=== PATIENT | female | born 1940 | race Caucasian/White ===

== ENCOUNTER 2021-06-10 22:31 | Inpatient (IN) | payer MEDICARE, OTHER ==
[2021-06-10 23:07] LABS: #Basophils 0.1 thou/uL (0.0-0.2); #Lymphocytes 1.1 thou/uL (1.20-3.40); #Neutrophils 4.9 thou/uL (1.40-6.50); %Basophils 0.8 % (0.0-1.0); %Eosinophils 0.5 % (0.0-10.0); %Monocytes 13.4 % (0.0-10.0); %Neutrophils 69.2 % (42.0-75.0); Hemoglobin 8.5 g/dL (12.0-16.0); Mean Corpuscular Hemoglobin 30.9 pg (27.0-31.0); Mean Corpuscular Volume 96.4 fL (78.0-98.0); Mean Platelet Volume 7.2 fL (7.4-10.4); Platelet Count 366 thou/uL (130-400); RBC Distribution Width 15.1 % (11.5-14.5); Red Blood Cell (RBC) Count 2.75 mill/uL (4.20-5.40)
[2021-06-10] MEDS ORDERED: Acetaminophen 500 MG TAB ONE (23:15)
[2021-06-10] MEDS ORDERED: Ibuprofen 200 MG TAB ONE (23:15)
[2021-06-10 23:29] LABS: ALT (SGPT) 9 U/L (8-55); AST (SGOT) 18 U/L (5-34); Albumin 2.6 g/dL (3.4-4.8); Alkaline Phosphatase 81 U/L (40-110); Anion Gap 13 mmol/L (10-20); BUN (Urea Nitrogen) 35 mg/dL (9.8-20.1); Bilirubin, Total 0.2 mg/dL (0.2-1.2); Calc. Creatinine Clearance 0 mL/min (70-130); Calcium 8.2 mg/dL (7.8-10.44); Carbon Dioxide 24 mmol/L (23-31); Chloride 107 mmol/L (98-107); Globulin 3.3 g/dL (2.4-3.5); Glucose 98 mg/dL (83-110); Potassium 4.5 mmol/L (3.5-5.1); Protein, Total 5.9 g/dL (5.8-8.1); Sodium 139 mmol/L (136-145)
[2021-06-11] MEDS ORDERED: cefTRIAXone\\ROCEPHIN 1 GM VIAL ONE (00:31)
[2021-06-11] MEDS ORDERED: Vancomycin 1 GM/200 ML BAG ONE (00:31)
[2021-06-11 09:25] LABS: Clarity Turbid (Clear); Specific Gravity, Urine 1.014 (1.002-1.036)
[2021-06-11 09:26] LABS: Bacteria/HPF 4+ HPF (None Seen); Bilirubin Negative (Negative); Blood, Urine Negative (Negative); Glucose, Urine (Dipstick) Negative (Negative); Ketone, Urine Negative (Negative); Leukocyte 75 Leu/uL (Negative); Nitrite 2+ (Negative); Protein, Urine (Dipstick) Negative (Neg-Trace); RBC/HPF 0-3 HPF (0-3); Squamous Epithelial 0-3 HPF (0-3); Urobilinogen Normal mg/dL (Less than 2); pH, Urine 5.5 (5.0-9.0)
[2021-06-11 10:24] LABS: SARS-CoV-2 NAA Rapid Test DETECTED (NotDetected)
[2021-06-11] MEDS ORDERED: Ondansetron ODT 4 MG TAB PO PRN (14:37)
[2021-06-11] MEDS ORDERED: Senokot S 8.6-50 MG TAB PO PRN (14:37)
[2021-06-11] MEDS ORDERED: Acetaminophen 325 MG TAB PO PRN (14:37)
[2021-06-11] MEDS: HYDROcodone/Acetaminophen 5/325 mg Tablet PO PRN ×2 (14:56→20:56)
[2021-06-11] MEDS ORDERED: Dexamethasone 4 mg/ml Vial SLOW IVP SCH (15:00)
[2021-06-11] MEDS: Cefepime 1 GM in Sodium Chloride 0.9% 100 ML IVPB SCH (15:25)
[2021-06-11] MEDS: Sodium Chloride 0.9% 1,000 ML IV SCH (15:26)
[2021-06-11] MEDS: Lorazepam 0.5 MG TAB PO PRN (17:51)
[2021-06-11] MEDS: traZODone HCl 50 MG TAB PO SCH (21:47)
[2021-06-12] MEDS ORDERED: Sodium Chloride 0.9% (PF) 10 ML VIAL FS PRN (00:45)
[2021-06-12 00:55] LABS: Hemoglobin 7.2 g/dL (12.0-16.0); Mean Corpuscular HGB CONC 32.4 g/dL (32.0-36.0); Mean Corpuscular Hemoglobin 31.7 pg (27.0-31.0); Mean Platelet Volume 7.2 fL (7.4-10.4); Platelet Count 324 thou/uL (130-400); RBC Distribution Width 15.1 % (11.5-14.5); Red Blood Cell (RBC) Count 2.28 mill/uL (4.20-5.40); White Blood Cell (WBC) Count 5.2 thou/uL (4.8-10.8)
[2021-06-12 04:42] LABS: #Lymphocytes 1.5 thou/uL (1.20-3.40); #Monocytes 0.2 thou/uL (0.11-0.59); #Neutrophils 3.6 thou/uL (1.40-6.50); %Eosinophils 0.2 % (0.0-10.0); %Lymphocytes 28.7 % (21.0-51.0); %Monocytes 3.4 % (0.0-10.0); %Neutrophils 67.7 % (42.0-75.0); Hemoglobin 7.7 g/dL (12.0-16.0); Mean Corpuscular HGB CONC 32.8 g/dL (32.0-36.0); Mean Corpuscular Hemoglobin 31.9 pg (27.0-31.0); Mean Corpuscular Volume 97.2 fL (78.0-98.0); Mean Platelet Volume 7.2 fL (7.4-10.4); Platelet Count 325 thou/uL (130-400); Red Blood Cell (RBC) Count 2.41 mill/uL (4.20-5.40); White Blood Cell (WBC) Count 5.3 thou/uL (4.8-10.8)
[2021-06-12 05:03] LABS: Anion Gap 11 mmol/L (10-20); BUN (Urea Nitrogen) 33 mg/dL (9.8-20.1); Calc. Creatinine Clearance 19 mL/min (70-130); Calcium 7.4 mg/dL (7.8-10.44); Carbon Dioxide 21 mmol/L (23-31); Chloride 110 mmol/L (98-107); Glucose 122 mg/dL (83-110); Sodium 138 mmol/L (136-145)
[2021-06-12] MEDS: Cefepime 1 GM in Sodium Chloride 0.9% 100 ML IVPB SCH ×2 (05:32→13:59)
[2021-06-12] MEDS: Sodium Chloride 0.9% 1,000 ML IV SCH ×3 (05:32→22:43)
[2021-06-12] MEDS: Levothyroxine Sodium 50 MCG TAB PO SCH (05:33)
[2021-06-12] MEDS: HYDROcodone/Acetaminophen 5/325 mg Tablet PO PRN ×3 (07:17→21:09)
[2021-06-12] MEDS: Aspirin 81 mg Enteric Coated Tablet PO SCH (08:22)
[2021-06-12] MEDS: Zinc Sulfate 220 MG CAP PO SCH (08:22)
[2021-06-12] MEDS: Ascorbic Acid 500 mg Chewable Tablet PO SCH (08:22)
[2021-06-12] MEDS: Dexamethasone 4 MG TAB PO SCH (08:22)
[2021-06-12] MEDS: Pantoprazole 40 MG VIAL IVP SCH (08:22)
[2021-06-12] MEDS: Enoxaparin Sodium 30 MG/0.3 ML SYRINGE SC SCH (08:22)
[2021-06-12 13:19] LABS: Hemoglobin 8.8 g/dL (12.0-16.0); Platelet Count 328 thou/uL (130-400)
[2021-06-12] MEDS: Lorazepam 0.5 MG TAB PO PRN ×2 (15:20→22:38)
[2021-06-12] MEDS: traZODone HCl 50 MG TAB PO SCH (21:09)
[2021-06-13] MEDS: Cefepime 1 GM in Sodium Chloride 0.9% 100 ML IVPB SCH ×2 (05:45→17:52)
[2021-06-13] MEDS: Levothyroxine Sodium 50 MCG TAB PO SCH (05:45)
[2021-06-13 07:34] LABS: #Lymphocytes 2.3 thou/uL (1.20-3.40); #Monocytes 0.6 thou/uL (0.11-0.59); #Neutrophils 6.9 thou/uL (1.40-6.50); %Basophils 0.2 % (0.0-1.0); %Eosinophils 0.4 % (0.0-10.0); %Lymphocytes 23.7 % (21.0-51.0); %Monocytes 5.7 % (0.0-10.0); Hemoglobin 8.6 g/dL (12.0-16.0); Mean Corpuscular HGB CONC 34.9 g/dL (32.0-36.0); Mean Corpuscular Hemoglobin 34.1 pg (27.0-31.0); Mean Corpuscular Volume 97.6 fL (78.0-98.0); Mean Platelet Volume 7.5 fL (7.4-10.4); Platelet Count 316 thou/uL (130-400); Red Blood Cell (RBC) Count 2.51 mill/uL (4.20-5.40); White Blood Cell (WBC) Count 9.8 thou/uL (4.8-10.8)
[2021-06-13 07:53] LABS: Anion Gap 10 mmol/L (10-20); BUN (Urea Nitrogen) 33 mg/dL (9.8-20.1); Calc. Creatinine Clearance 19 mL/min (70-130); Calcium 7.4 mg/dL (7.8-10.44); Carbon Dioxide 21 mmol/L (23-31); Chloride 112 mmol/L (98-107); Glucose 90 mg/dL (83-110); Potassium 3.8 mmol/L (3.5-5.1); Sodium 139 mmol/L (136-145)
[2021-06-13] MEDS: Aspirin 81 mg Enteric Coated Tablet PO SCH (07:54)
[2021-06-13] MEDS: Zinc Sulfate 220 MG CAP PO SCH (07:54)
[2021-06-13] MEDS: Enoxaparin Sodium 30 MG/0.3 ML SYRINGE SC SCH (07:54)
[2021-06-13] MEDS: Pantoprazole 40 MG VIAL IVP SCH (07:54)
[2021-06-13] MEDS: Ascorbic Acid 500 mg Chewable Tablet PO SCH (07:55)
[2021-06-13] MEDS: Dexamethasone 4 MG TAB PO SCH (07:55)
[2021-06-13] MEDS: HYDROcodone/Acetaminophen 5/325 mg Tablet PO PRN (10:13)
[2021-06-13] MEDS ORDERED: Calcitriol 0.25 MCG CAP PO SCH (10:30)
[2021-06-13] MEDS ORDERED: HYDROcodone/Acetaminophen 5/325 mg Tablet PO PRN (10:39)
[2021-06-13 12:04] LABS: #Basophils 0.1 thou/uL (0.0-0.2); #Lymphocytes 1.9 thou/uL (1.20-3.40); #Monocytes 0.6 thou/uL (0.11-0.59); #Neutrophils 9.8 thou/uL (1.40-6.50); %Basophils 0.9 % (0.0-1.0); %Eosinophils 0.3 % (0.0-10.0); %Monocytes 4.7 % (0.0-10.0); Hemoglobin 8.8 g/dL (12.0-16.0); Mean Corpuscular HGB CONC 31.8 g/dL (32.0-36.0); Mean Corpuscular Hemoglobin 30.9 pg (27.0-31.0); Mean Platelet Volume 7.5 fL (7.4-10.4); Platelet Count 331 thou/uL (130-400); RBC Distribution Width 14.9 % (11.5-14.5); Red Blood Cell (RBC) Count 2.86 mill/uL (4.20-5.40); White Blood Cell (WBC) Count 12.4 thou/uL (4.8-10.8)
[2021-06-13] MEDS: Lorazepam 0.5 MG TAB PO PRN ×2 (12:36→21:06)
[2021-06-13] MEDS: Pantoprazole 80 MG in Sodium Chloride 0.9% 100 ML IVPB SCH (14:41)
[2021-06-13] MEDS: Acetaminophen/Codeine 30-300mg Tablet PO PRN ×2 (14:43→20:26)
[2021-06-13] MEDS ORDERED: Glycopyrrolate 0.2 MG/ML 5 ML SYRINGE ONE (16:52)
[2021-06-13] MEDS ORDERED: GoLYTELY 4,000 ml Bottle PO SCH (17:15)
[2021-06-13 19:15] LABS: #Basophils 0.1 thou/uL (0.0-0.2); #Lymphocytes 1.9 thou/uL (1.20-3.40); #Monocytes 0.5 thou/uL (0.11-0.59); #Neutrophils 8.6 thou/uL (1.40-6.50); %Basophils 0.5 % (0.0-1.0); %Eosinophils 0.3 % (0.0-10.0); %Lymphocytes 17.1 % (21.0-51.0); %Monocytes 4.6 % (0.0-10.0); %Neutrophils 77.5 % (42.0-75.0); Hemoglobin 8.7 g/dL (12.0-16.0); Mean Corpuscular HGB CONC 32.3 g/dL (32.0-36.0); Mean Corpuscular Hemoglobin 31.4 pg (27.0-31.0); Mean Corpuscular Volume 97.1 fL (78.0-98.0); Mean Platelet Volume 7.3 fL (7.4-10.4); Platelet Count 314 thou/uL (130-400); RBC Distribution Width 14.8 % (11.5-14.5); Red Blood Cell (RBC) Count 2.76 mill/uL (4.20-5.40); White Blood Cell (WBC) Count 11.1 thou/uL (4.8-10.8)
[2021-06-13] MEDS: traZODone HCl 50 MG TAB PO SCH (20:26)
[2021-06-13] MEDS ORDERED: cefTRIAXone\\ROCEPHIN 1 GM in Sodium Chloride 0.9% 100 ML IVPB SCH (21:00)
[2021-06-13 23:56] LABS: #Lymphocytes 1.9 thou/uL (1.20-3.40); #Monocytes 0.5 thou/uL (0.11-0.59); #Neutrophils 6.5 thou/uL (1.40-6.50); %Basophils 0.1 % (0.0-1.0); %Eosinophils 0.4 % (0.0-10.0); %Lymphocytes 20.9 % (21.0-51.0); %Neutrophils 72.6 % (42.0-75.0); Anisocytosis SLIGHT = 6-15 cells (100X) (0-5/hpf); Hemoglobin 7.5 g/dL (12.0-16.0); MDiff Complete? YES; Mean Corpuscular Hemoglobin 31.8 pg (27.0-31.0); Mean Corpuscular Volume 96.3 fL (78.0-98.0); Mean Platelet Volume 7.7 fL (7.4-10.4); Platelet Count 268 thou/uL (130-400); Platelet Morphology Comment Appears Adequate; Polychromasia SLIGHT = 2-3 cells (100X) (0-2/hpf); Red Blood Cell (RBC) Count 2.36 mill/uL (4.20-5.40)
[2021-06-14] MEDS: Cefepime 1 GM in Sodium Chloride 0.9% 100 ML IVPB SCH ×2 (03:59→14:48)
[2021-06-14] MEDS: Pantoprazole 80 MG in Sodium Chloride 0.9% 100 ML IVPB SCH (03:59)
[2021-06-14] MEDS: Levothyroxine Sodium 50 MCG TAB PO SCH (05:19)
[2021-06-14 05:32] LABS: #Lymphocytes 1.8 thou/uL (1.20-3.40); #Monocytes 0.5 thou/uL (0.11-0.59); #Neutrophils 5.5 thou/uL (1.40-6.50); %Basophils 0.5 % (0.0-1.0); %Eosinophils 0.4 % (0.0-10.0); %Lymphocytes 22.6 % (21.0-51.0); %Monocytes 6.5 % (0.0-10.0); %Neutrophils 70.1 % (42.0-75.0); Hemoglobin 7.3 g/dL (12.0-16.0); Mean Corpuscular HGB CONC 31.6 g/dL (32.0-36.0); Mean Corpuscular Hemoglobin 30.7 pg (27.0-31.0); Mean Platelet Volume 7.3 fL (7.4-10.4); Platelet Count 297 thou/uL (130-400); RBC Distribution Width 14.7 % (11.5-14.5); Red Blood Cell (RBC) Count 2.36 mill/uL (4.20-5.40); White Blood Cell (WBC) Count 7.9 thou/uL (4.8-10.8)
[2021-06-14 05:58] LABS: Anion Gap 14 mmol/L (10-20); BUN (Urea Nitrogen) 32 mg/dL (9.8-20.1); Calc. Creatinine Clearance 17 mL/min (70-130); Calcium 7.1 mg/dL (7.8-10.44); Carbon Dioxide 16 mmol/L (23-31); Chloride 112 mmol/L (98-107); Glucose 83 mg/dL (83-110); Potassium 3.7 mmol/L (3.5-5.1); Sodium 138 mmol/L (136-145)
[2021-06-14] MEDS: Ascorbic Acid 500 mg Chewable Tablet PO SCH (07:31)
[2021-06-14] MEDS: Lorazepam 0.5 MG TAB PO PRN ×2 (07:32→21:12)
[2021-06-14] MEDS: Zinc Sulfate 220 MG CAP PO SCH (07:32)
[2021-06-14] MEDS: Calcitriol 0.25 MCG CAP PO SCH (07:32)
[2021-06-14] MEDS: Acetaminophen/Codeine 30-300mg Tablet PO PRN ×3 (08:29→21:11)
[2021-06-14] MEDS: Ondansetron PF 4 MG/2 ML Vial IVP PRN (08:29)
[2021-06-14] MEDS ORDERED: GoLYTELY 4,000 ml Bottle PO SCH (08:45)
[2021-06-14] MEDS ORDERED: Albumin 25% 25 GM/100 ML BOT IVPB SCH ×2 (09:45→12:00)
[2021-06-14] MEDS ORDERED: Iopamidol 370 76% 50 ML VIAL FS ONE (12:44)
[2021-06-14] MEDS: Sodium Bicarbonate Tab 325 MG TAB PO SCH ×2 (14:48→21:11)
[2021-06-14] MEDS ORDERED: Ketamine 50 MG/ML (10ML VIAL) ONE (16:44)
[2021-06-14] MEDS ORDERED: Lidocaine 1% PF 5 ML VIAL ONE (17:25)
[2021-06-14] MEDS ORDERED: PROPOFOL 200 MG/20 ML VIAL ONE (17:25)
[2021-06-14] MEDS ORDERED: Ondansetron HCl/PF 4 MG/2 ML Vial IVP PRN (17:58)
[2021-06-14] MEDS ORDERED: PACU-Morphine 4MG/ML VIAL SLOW IVP PRN (17:58)
[2021-06-14] MEDS ORDERED: Promethazine HCl 25 MG/ML VIAL IVPB PRN (17:58)
[2021-06-14] MEDS ORDERED: Promethazine HCl 25 MG/ML VIAL IM PRN (17:58)
[2021-06-14] MEDS: Albumin 25% 25 GM/100 ML BOT IVPB SCH (21:11)
[2021-06-14] MEDS: traZODone HCl 50 MG TAB PO SCH (21:11)
[2021-06-15] MEDS: Sodium Chloride 0.9% 1,000 ML IV SCH ×3 (01:19→21:22)
[2021-06-15 01:55] LABS: #Lymphocytes 1.4 thou/uL (1.20-3.40); #Monocytes 0.4 thou/uL (0.11-0.59); #Neutrophils 4.7 thou/uL (1.40-6.50); %Basophils 0.4 % (0.0-1.0); %Eosinophils 0.6 % (0.0-10.0); %Lymphocytes 21.5 % (21.0-51.0); %Monocytes 5.6 % (0.0-10.0); %Neutrophils 71.9 % (42.0-75.0); Hemoglobin 8.2 g/dL (12.0-16.0); Mean Corpuscular HGB CONC 32.2 g/dL (32.0-36.0); Mean Corpuscular Hemoglobin 30.2 pg (27.0-31.0); Mean Corpuscular Volume 93.7 fL (78.0-98.0); Mean Platelet Volume 7.2 fL (7.4-10.4); Platelet Count 233 thou/uL (130-400); Red Blood Cell (RBC) Count 2.71 mill/uL (4.20-5.40); White Blood Cell (WBC) Count 6.5 thou/uL (4.8-10.8)
[2021-06-15] MEDS: Albumin 25% 25 GM/100 ML BOT IVPB SCH ×2 (03:56→08:39)
[2021-06-15] MEDS: Cefepime 1 GM in Sodium Chloride 0.9% 100 ML IVPB SCH ×2 (05:27→15:54)
[2021-06-15] MEDS: Levothyroxine Sodium 50 MCG TAB PO SCH (05:28)
[2021-06-15] MEDS: Acetaminophen/Codeine 30-300mg Tablet PO PRN (06:10)
[2021-06-15] MEDS ORDERED: GUAIFENESIN SF SOLN 200 MG/10 ML UDCUP PO PRN (07:45)
[2021-06-15] MEDS ORDERED: Loratadine 10 MG TAB PO PRN (07:45)
[2021-06-15] MEDS ORDERED: Cepastat Lozenges 1 LOZ PO PRN (07:45)
[2021-06-15] MEDS ORDERED: Artificial Tear Sol 15 ML BOT EA EYE PRN (07:45)
[2021-06-15] MEDS ORDERED: diphenhydrAMINE 50 MG/ML VIAL IVP PRN (07:45)
[2021-06-15] MEDS ORDERED: Hydrocerin (Eucerin) Cream 120 gm Jar TOP PRN (07:45)
[2021-06-15] MEDS ORDERED: Bisacodyl 5 MG TAB PO PRN (07:45)
[2021-06-15] MEDS ORDERED: Calcium Carbonate 500 MG ChewTAB PO PRN (07:45)
[2021-06-15] MEDS ORDERED: Sodium Chloride 0.65% Nasal 44 ML BOT EA NARE PRN (07:45)
[2021-06-15] MEDS ORDERED: Acetaminophen 650 MG Suppository PR PRN (07:45)
[2021-06-15] MEDS: Sodium Bicarbonate Tab 325 MG TAB PO SCH ×3 (08:38→21:33)
[2021-06-15] MEDS: Ascorbic Acid 500 mg Chewable Tablet PO SCH (08:38)
[2021-06-15] MEDS: Calcitriol 0.25 MCG CAP PO SCH (08:39)
[2021-06-15] MEDS: Zinc Sulfate 220 MG CAP PO SCH (08:39)
[2021-06-15] MEDS: Pantoprazole 80 MG in Sodium Chloride 0.9% 100 ML IVPB SCH (08:39)
[2021-06-15 09:37] LABS: Hemoglobin 8.5 g/dL (12.0-16.0)
[2021-06-15 10:12] LABS: Anion Gap 13 mmol/L (10-20); BUN (Urea Nitrogen) 30 mg/dL (9.8-20.1); Calc. Creatinine Clearance 18 mL/min (70-130); Calcium 7.6 mg/dL (7.8-10.44); Carbon Dioxide 19 mmol/L (23-31); Chloride 110 mmol/L (98-107); Glucose 76 mg/dL (83-110); Potassium 3.5 mmol/L (3.5-5.1); Sodium 138 mmol/L (136-145)
[2021-06-15] MEDS: hydrALAZINE 20 MG/ML VIAL SLOW IVP PRN (19:56)
[2021-06-15] MEDS: Lorazepam 0.5 MG TAB PO PRN (21:33)
[2021-06-15] MEDS: traZODone HCl 50 MG TAB PO SCH (21:33)
[2021-06-16] MEDS: Cefepime 1 GM in Sodium Chloride 0.9% 100 ML IVPB SCH (05:43)
[2021-06-16] MEDS: Levothyroxine Sodium 50 MCG TAB PO SCH (05:43)
[2021-06-16] MEDS ORDERED: Dextrose 50% Abboject 50 ML SYRINGE ONE (06:07)
[2021-06-16] MEDS ORDERED: Dextrose 50% Abboject 50 ML SYRINGE SLOW IVP PRN (06:30)
[2021-06-16] MEDS ORDERED: Dextrose 5% in Water 1,000 ML IV PRN (06:30)
[2021-06-16 07:05] LABS: #Eosinphils 0.1 thou/uL (0.0-0.7); #Lymphocytes 1.6 thou/uL (1.20-3.40); #Monocytes 0.3 thou/uL (0.11-0.59); #Neutrophils 6.4 thou/uL (1.40-6.50); %Basophils 0.2 % (0.0-1.0); %Eosinophils 0.6 % (0.0-10.0); %Lymphocytes 19.2 % (21.0-51.0); %Monocytes 3.3 % (0.0-10.0); %Neutrophils 76.7 % (42.0-75.0); Mean Corpuscular HGB CONC 31.6 g/dL (32.0-36.0); Mean Corpuscular Hemoglobin 30.1 pg (27.0-31.0); Mean Corpuscular Volume 95.2 fL (78.0-98.0); Mean Platelet Volume 8.2 fL (7.4-10.4); Platelet Count 196 thou/uL (130-400); RBC Distribution Width 16.2 % (11.5-14.5); White Blood Cell (WBC) Count 8.3 thou/uL (4.8-10.8)
[2021-06-16] MEDS: Dextrose 5 %-0.45 % NaCl 1,000 ML IV SCH ×2 (07:20→15:58)
[2021-06-16 07:22] LABS: Anion Gap 14 mmol/L (10-20); BUN (Urea Nitrogen) 28 mg/dL (9.8-20.1); Calc. Creatinine Clearance 19 mL/min (70-130); Calcium 7.4 mg/dL (7.8-10.44); Carbon Dioxide 15 mmol/L (23-31); Chloride 113 mmol/L (98-107); Glucose 200 mg/dL (83-110); Potassium 3.8 mmol/L (3.5-5.1); Sodium 138 mmol/L (136-145)
[2021-06-16] MEDS: Sodium Bicarbonate Tab 325 MG TAB PO SCH ×3 (07:36→21:00)
[2021-06-16] MEDS: Ascorbic Acid 500 mg Chewable Tablet PO SCH (07:36)
[2021-06-16] MEDS: Calcitriol 0.25 MCG CAP PO SCH (07:36)
[2021-06-16] MEDS: Zinc Sulfate 220 MG CAP PO SCH (07:37)
[2021-06-16 10:12] LABS: Anion Gap 13 mmol/L (10-20); BUN (Urea Nitrogen) 27 mg/dL (9.8-20.1); Calc. Creatinine Clearance 19 mL/min (70-130); Calcium 7.5 mg/dL (7.8-10.44); Carbon Dioxide 16 mmol/L (23-31); Chloride 113 mmol/L (98-107); Glucose 91 mg/dL (83-110); Potassium 3.3 mmol/L (3.5-5.1); Sodium 139 mmol/L (136-145)
[2021-06-16] MEDS ORDERED: cefTRIAXone\\ROCEPHIN 1 GM in Sodium Chloride 0.9% 100 ML IVPB SCH (12:00)
[2021-06-16] MEDS ORDERED: Potassium Chloride 10 MEQ/100 ML PREMIX BAG IVPB SCH (12:15)
[2021-06-16] MEDS ORDERED: Fentanyl 100 MCG/2 ML VIAL ONE ×4 (13:15→18:38)
[2021-06-16] MEDS ORDERED: Rocuronium Bromide 10 MG/ML (10ML VIAL) ONE (14:03)
[2021-06-16] MEDS ORDERED: Ondansetron PF 4 MG/2 ML Vial ONE ×3 (14:03→16:20)
[2021-06-16] MEDS ORDERED: PHENYLEPHRINE-NS 100 MCG/ML 10 ML SYRINGE ONE (14:03)
[2021-06-16] MEDS ORDERED: Dexamethasone 20 MG/5 ML VIAL ONE (14:03)
[2021-06-16] MEDS ORDERED: Lidocaine 1% PF 5 ML VIAL ONE (14:03)
[2021-06-16] MEDS ORDERED: Promethazine HCl 25 MG/ML VIAL ONE (16:20)
[2021-06-16] MEDS ORDERED: Morphine 4 MG/ML VIAL SLOW IVP PRN (16:54)
[2021-06-16] MEDS ORDERED: Ondansetron ODT 8 MG TAB SL PRN (16:57)
[2021-06-16] MEDS ORDERED: Ondansetron ODT 4 MG TAB PO PRN (17:03)
[2021-06-16] MEDS: Acetaminophen 500 MG TAB PO SCH ×2 (20:59→21:29)
[2021-06-16] MEDS: Gabapentin 100 MG CAP PO SCH (21:00)
[2021-06-16] MEDS: traMADol HCl 50 MG TAB PO SCH (21:00)
[2021-06-16] MEDS: traZODone HCl 50 MG TAB PO SCH (21:01)
[2021-06-16] MEDS: Dextrose 5%-Lactated Ringers 1,000 ML IV SCH (21:29)
[2021-06-17 05:05] LABS: Magnesium 1.8 mg/dL (1.6-2.6); Phosphorus 4.1 mg/dL (2.3-4.7)
[2021-06-17 05:07] LABS: ALT (SGPT) 13 U/L (8-55); AST (SGOT) 39 U/L (5-34); Albumin 2.4 g/dL (3.4-4.8); Alkaline Phosphatase 44 U/L (40-110); Bilirubin, Direct 0.3 mg/dL (0.1-0.3); Bilirubin, Total 0.5 mg/dL (0.2-1.2); Globulin 2.4 g/dL (2.4-3.5); Protein, Total 4.8 g/dL (5.8-8.1)
[2021-06-17 05:14] LABS: #Eosinphils 0.1 thou/uL (0.0-0.7); #Monocytes 0.5 thou/uL (0.11-0.59); #Neutrophils 10.5 thou/uL (1.40-6.50); %Basophils 0.1 % (0.0-1.0); %Eosinophils 0.6 % (0.0-10.0); %Lymphocytes 8.5 % (21.0-51.0); %Monocytes 3.9 % (0.0-10.0); %Neutrophils 86.9 % (42.0-75.0); Hemoglobin 10.9 g/dL (12.0-16.0); Mean Corpuscular HGB CONC 31.7 g/dL (32.0-36.0); Mean Corpuscular Volume 91.7 fL (78.0-98.0); Mean Platelet Volume 8.7 fL (7.4-10.4); Platelet Count 166 thou/uL (130-400); RBC Distribution Width 16.9 % (11.5-14.5); Red Blood Cell (RBC) Count 3.77 mill/uL (4.20-5.40); White Blood Cell (WBC) Count 12.1 thou/uL (4.8-10.8)
[2021-06-17 06:50] LABS: Anion Gap 14 mmol/L (10-20); BUN (Urea Nitrogen) 27 mg/dL (9.8-20.1); Calc. Creatinine Clearance 20 mL/min (70-130); Calcium 7.4 mg/dL (7.8-10.44); Carbon Dioxide 16 mmol/L (23-31); Chloride 114 mmol/L (98-107); Glucose 155 mg/dL (83-110); Potassium 3.5 mmol/L (3.5-5.1); Sodium 140 mmol/L (136-145)
[2021-06-17] MEDS: Levothyroxine Sodium 50 MCG TAB PO SCH (07:21)
[2021-06-17] MEDS: Acetaminophen 500 MG TAB PO SCH ×3 (08:23→21:17)
[2021-06-17] MEDS: Dextrose 5%-Lactated Ringers 1,000 ML IV SCH ×3 (08:23→22:24)
[2021-06-17] MEDS: Gabapentin 100 MG CAP PO SCH ×3 (08:23→21:17)
[2021-06-17] MEDS: traMADol HCl 50 MG TAB PO SCH (08:24)
[2021-06-17] MEDS: Sodium Bicarbonate Tab 325 MG TAB PO SCH ×3 (08:24→21:18)
[2021-06-17] MEDS ORDERED: traMADol HCl 50 MG TAB PO PRN (12:09)
[2021-06-17 15:25] LABS: SARS-CoV-2 NAA Rapid Test DETECTED (NotDetected)
[2021-06-17] MEDS: traZODone HCl 50 MG TAB PO SCH (21:18)
[2021-06-18 06:29] LABS: #Basophils 0.1 thou/uL (0.0-0.2); #Lymphocytes 1.2 thou/uL (1.20-3.40); #Monocytes 0.5 thou/uL (0.11-0.59); #Neutrophils 8.8 thou/uL (1.40-6.50); %Basophils 0.6 % (0.0-1.0); %Eosinophils 0.2 % (0.0-10.0); %Lymphocytes 11.2 % (21.0-51.0); %Monocytes 4.9 % (0.0-10.0); %Neutrophils 83.2 % (42.0-75.0); Hemoglobin 10.3 g/dL (12.0-16.0); Mean Corpuscular Hemoglobin 29.3 pg (27.0-31.0); Mean Corpuscular Volume 91.7 fL (78.0-98.0); Mean Platelet Volume 8.8 fL (7.4-10.4); Platelet Count 171 thou/uL (130-400); White Blood Cell (WBC) Count 10.6 thou/uL (4.8-10.8)
[2021-06-18 06:46] LABS: ALT (SGPT) 13 U/L (8-55); AST (SGOT) 28 U/L (5-34); Albumin 2.3 g/dL (3.4-4.8); Alkaline Phosphatase 45 U/L (40-110); Anion Gap 10 mmol/L (10-20); BUN (Urea Nitrogen) 25 mg/dL (9.8-20.1); Bilirubin, Total 0.3 mg/dL (0.2-1.2); Calc. Creatinine Clearance 19 mL/min (70-130); Calcium 7.5 mg/dL (7.8-10.44); Carbon Dioxide 20 mmol/L (23-31); Chloride 114 mmol/L (98-107); Globulin 2.4 g/dL (2.4-3.5); Glucose 139 mg/dL (83-110); Potassium 3.4 mmol/L (3.5-5.1); Protein, Total 4.7 g/dL (5.8-8.1); Sodium 141 mmol/L (136-145)
[2021-06-18] MEDS ORDERED: Albuterol 200 PUFF (6.7GM INHALER) INH PRN (07:14)
[2021-06-18] MEDS ORDERED: Potassium Chloride 20 MEQ in Premix Bag 1 BAG IVPB SCH (07:15)
[2021-06-18] MEDS: Levothyroxine Sodium 50 MCG TAB PO SCH (07:43)
[2021-06-18] MEDS: Cholecalciferol 1,000 UNITS (25 MCG) TAB PO SCH (08:30)
[2021-06-18] MEDS: Pantoprazole 40 MG VIAL IVP SCH (08:30)
[2021-06-18] MEDS: Ascorbic Acid 500 mg Chewable Tablet PO SCH (08:30)
[2021-06-18] MEDS: Gabapentin 100 MG CAP PO SCH ×3 (08:31→22:55)
[2021-06-18] MEDS: Zinc Sulfate 220 MG CAP PO SCH (08:31)
[2021-06-18] MEDS: Sodium Bicarbonate Tab 325 MG TAB PO SCH ×3 (08:31→22:55)
[2021-06-18] MEDS: Vitamin E 400 UNITS CAP PO SCH (08:31)
[2021-06-18] MEDS: Albuterol 200 PUFF (6.7GM INHALER) INH SCH ×3 (09:46→18:08)
[2021-06-18] MEDS: Dextrose 5%-Lactated Ringers 1,000 ML IV SCH (18:08)
[2021-06-18] MEDS: traZODone HCl 50 MG TAB PO SCH (22:55)
[2021-06-19] MEDS: Dextrose 5%-Lactated Ringers 1,000 ML IV SCH ×2 (00:24→16:38)
[2021-06-19] MEDS: Albuterol 200 PUFF (6.7GM INHALER) INH SCH ×4 (01:14→18:54)
[2021-06-19] MEDS: Levothyroxine Sodium 50 MCG TAB PO SCH (05:38)
[2021-06-19 06:05] LABS: #Lymphocytes 1.1 thou/uL (1.20-3.40); #Monocytes 0.4 thou/uL (0.11-0.59); #Neutrophils 5.8 thou/uL (1.40-6.50); %Basophils 0.2 % (0.0-1.0); %Eosinophils 0.5 % (0.0-10.0); %Lymphocytes 14.9 % (21.0-51.0); %Monocytes 5.3 % (0.0-10.0); Hemoglobin 9.2 g/dL (12.0-16.0); Mean Corpuscular HGB CONC 31.7 g/dL (32.0-36.0); Mean Corpuscular Hemoglobin 29.2 pg (27.0-31.0); Mean Corpuscular Volume 92.1 fL (78.0-98.0); Mean Platelet Volume 8.6 fL (7.4-10.4); Platelet Count 151 thou/uL (130-400); RBC Distribution Width 16.5 % (11.5-14.5); Red Blood Cell (RBC) Count 3.16 mill/uL (4.20-5.40); White Blood Cell (WBC) Count 7.4 thou/uL (4.8-10.8)
[2021-06-19 06:22] LABS: Anion Gap 9 mmol/L (10-20); BUN (Urea Nitrogen) 22 mg/dL (9.8-20.1); CRP (Inflammatory) 11.81 mg/dL (= or < 0.5); Calc. Creatinine Clearance 21 mL/min (70-130); Calcium 7.3 mg/dL (7.8-10.44); Carbon Dioxide 21 mmol/L (23-31); Chloride 113 mmol/L (98-107); Glucose 130 mg/dL (83-110); Magnesium 1.7 mg/dL (1.6-2.6); Potassium 3.4 mmol/L (3.5-5.1); Sodium 140 mmol/L (136-145)
[2021-06-19 06:24] LABS: Phosphorus 1.9 mg/dL (2.3-4.7)
[2021-06-19] MEDS ORDERED: Electrolyte Replacement Protocol 1 EACH FS PRN (06:34)
[2021-06-19] MEDS ORDERED: Potassium Phosphate 15 MMOL in Sodium Chloride 0.9% 100 ML IVPB SCH (06:45)
[2021-06-19] MEDS ORDERED: Magnesium 2 GM/50 ML 2 GM in Premix Bag 1 BAG IVPB SCH (07:45)
[2021-06-19] MEDS: Ascorbic Acid 500 mg Chewable Tablet PO SCH (08:22)
[2021-06-19] MEDS: Sodium Bicarbonate Tab 325 MG TAB PO SCH ×3 (08:22→20:11)
[2021-06-19] MEDS: Pantoprazole 40 MG VIAL IVP SCH (08:23)
[2021-06-19] MEDS ORDERED: Furosemide 20 MG/2 ML VIAL SLOW IVP SCH ×2 (09:15→11:30)
[2021-06-19] MEDS: Gabapentin 100 MG CAP PO SCH ×3 (09:25→20:11)
[2021-06-19] MEDS: Vitamin E 400 UNITS CAP PO SCH (11:30)
[2021-06-19] MEDS: cefTRIAXone\\ROCEPHIN 1 GM in Sodium Chloride 0.9% 100 ML IVPB SCH (11:31)
[2021-06-19] MEDS: Cholecalciferol 1,000 UNITS (25 MCG) TAB PO SCH (11:38)
[2021-06-19] MEDS: Zinc Sulfate 220 MG CAP PO SCH (11:38)
[2021-06-19] MEDS: Heparin 5,000 UNITS/ML VIAL SC SCH (20:12)
[2021-06-19] MEDS: Acetaminophen 325 MG TAB PO PRN (20:12)
[2021-06-19] MEDS: traZODone HCl 50 MG TAB PO SCH (20:12)
[2021-06-20] MEDS: Albuterol 200 PUFF (6.7GM INHALER) INH SCH ×4 (01:35→19:02)
[2021-06-20] MEDS: Levothyroxine Sodium 50 MCG TAB PO SCH (05:04)
[2021-06-20 05:50] LABS: #Lymphocytes 1.5 thou/uL (1.20-3.40); #Monocytes 0.2 thou/uL (0.11-0.59); #Neutrophils 6.7 thou/uL (1.40-6.50); %Basophils 0.1 % (0.0-1.0); %Eosinophils 0.3 % (0.0-10.0); %Lymphocytes 17.6 % (21.0-51.0); %Monocytes 2.6 % (0.0-10.0); %Neutrophils 79.5 % (42.0-75.0); Mean Corpuscular HGB CONC 31.9 g/dL (32.0-36.0); Mean Corpuscular Hemoglobin 29.4 pg (27.0-31.0); Mean Corpuscular Volume 92.2 fL (78.0-98.0); Mean Platelet Volume 8.9 fL (7.4-10.4); Platelet Count 138 thou/uL (130-400); RBC Distribution Width 16.3 % (11.5-14.5); Red Blood Cell (RBC) Count 3.38 mill/uL (4.20-5.40); White Blood Cell (WBC) Count 8.4 thou/uL (4.8-10.8)
[2021-06-20] MEDS: Dextrose 5%-Lactated Ringers 1,000 ML IV SCH (05:58)
[2021-06-20 06:09] LABS: ALT (SGPT) 21 U/L (8-55); AST (SGOT) 41 U/L (5-34); Albumin 2.1 g/dL (3.4-4.8); Alkaline Phosphatase 58 U/L (40-110); Anion Gap 8 mmol/L (10-20); BUN (Urea Nitrogen) 26 mg/dL (9.8-20.1); Bilirubin, Total 0.3 mg/dL (0.2-1.2); CRP (Inflammatory) 11.76 mg/dL (= or < 0.5); Calc. Creatinine Clearance 22 mL/min (70-130); Calcium 7.2 mg/dL (7.8-10.44); Carbon Dioxide 25 mmol/L (23-31); Chloride 113 mmol/L (98-107); Globulin 2.6 g/dL (2.4-3.5); Glucose 99 mg/dL (83-110); Magnesium 1.9 mg/dL (1.6-2.6); Phosphorus 2.2 mg/dL (2.3-4.7); Potassium 3.6 mmol/L (3.5-5.1); Protein, Total 4.7 g/dL (5.8-8.1); Sodium 142 mmol/L (136-145)
[2021-06-20] MEDS ORDERED: Magnesium 2 GM/50 ML 2 GM in Premix Bag 1 BAG IVPB SCH (06:30)
[2021-06-20] MEDS: Sodium Bicarbonate Tab 325 MG TAB PO SCH ×3 (09:31→20:28)
[2021-06-20] MEDS: Zinc Sulfate 220 MG CAP PER TUBE SCH (09:31)
[2021-06-20] MEDS: Ascorbic Acid 500 mg Chewable Tablet PER TUBE SCH (09:31)
[2021-06-20] MEDS: Cholecalciferol 1,000 UNITS (25 MCG) TAB PER TUBE SCH (09:32)
[2021-06-20] MEDS: Vitamin E 400 UNITS CAP PO SCH (09:32)
[2021-06-20] MEDS: Gabapentin 100 MG CAP PO SCH ×3 (09:32→20:28)
[2021-06-20] MEDS: Heparin 5,000 UNITS/ML VIAL SC SCH ×2 (09:32→20:28)
[2021-06-20] MEDS: Pantoprazole 40 MG VIAL IVP SCH (09:34)
[2021-06-20] MEDS: Acetaminophen 325 MG TAB PO PRN (09:42)
[2021-06-20] MEDS: cefTRIAXone\\ROCEPHIN 1 GM in Sodium Chloride 0.9% 100 ML IVPB SCH (09:59)
[2021-06-20] MEDS ORDERED: PHOS-NAK 1 PKT PACK PER TUBE SCH (12:00)
[2021-06-20] MEDS: traZODone HCl 50 MG TAB PO SCH (20:28)
[2021-06-21] MEDS: Albuterol 200 PUFF (6.7GM INHALER) INH SCH ×4 (00:37→21:10)
[2021-06-21] MEDS: Levothyroxine Sodium 50 MCG TAB PO SCH (05:17)
[2021-06-21] MEDS ORDERED: traZODone HCl 50 MG TAB PO PRN (07:45)
[2021-06-21] MEDS: Sodium Bicarbonate Tab 325 MG TAB PO SCH ×3 (08:34→21:10)
[2021-06-21] MEDS: Ascorbic Acid 500 mg Chewable Tablet PER TUBE SCH (08:35)
[2021-06-21] MEDS: Zinc Sulfate 220 MG CAP PER TUBE SCH (08:35)
[2021-06-21] MEDS: Magnesium Oxide 400 MG TAB PO SCH (08:36)
[2021-06-21] MEDS: Dexamethasone 4 MG TAB PER TUBE SCH (08:36)
[2021-06-21] MEDS: Gabapentin 100 MG CAP PO SCH ×3 (08:36→21:10)
[2021-06-21] MEDS: Heparin 5,000 UNITS/ML VIAL SC SCH ×2 (08:36→21:10)
[2021-06-21] MEDS: Pantoprazole 40 MG GRANULES PACKET PO SCH (08:37)
[2021-06-21] MEDS: Loperamide HCl 2 MG CAP PO PRN ×3 (08:42→17:27)
[2021-06-21] MEDS: Vitamin E 400 UNITS CAP PO SCH (08:42)
[2021-06-21] MEDS: Cholecalciferol 1,000 UNITS (25 MCG) TAB PER TUBE SCH (08:42)
[2021-06-21 10:56] LABS: #Lymphocytes 1.2 thou/uL (1.20-3.40); #Monocytes 0.3 thou/uL (0.11-0.59); #Neutrophils 9.7 thou/uL (1.40-6.50); %Eosinophils 0.2 % (0.0-10.0); %Lymphocytes 10.8 % (21.0-51.0); %Monocytes 2.7 % (0.0-10.0); %Neutrophils 86.3 % (42.0-75.0); Hemoglobin 10.3 g/dL (12.0-16.0); Mean Corpuscular HGB CONC 30.8 g/dL (32.0-36.0); Mean Corpuscular Hemoglobin 28.1 pg (27.0-31.0); Mean Corpuscular Volume 91.4 fL (78.0-98.0); Mean Platelet Volume 9.1 fL (7.4-10.4); Platelet Count 165 thou/uL (130-400); Red Blood Cell (RBC) Count 3.65 mill/uL (4.20-5.40); White Blood Cell (WBC) Count 11.2 thou/uL (4.8-10.8)
[2021-06-21 11:08] LABS: Anion Gap 14 mmol/L (10-20); BUN (Urea Nitrogen) 30 mg/dL (9.8-20.1); Calc. Creatinine Clearance 21 mL/min (70-130); Calcium 7.1 mg/dL (7.8-10.44); Carbon Dioxide 22 mmol/L (23-31); Chloride 112 mmol/L (98-107); Glucose 105 mg/dL (83-110); Magnesium 2.4 mg/dL (1.6-2.6); Phosphorus 2.2 mg/dL (2.3-4.7); Potassium 4.1 mmol/L (3.5-5.1); Sodium 144 mmol/L (136-145)
[2021-06-21] MEDS ORDERED: PHOS-NAK 1 PKT PACK PO SCH (12:00)
[2021-06-22] MEDS: Albuterol 200 PUFF (6.7GM INHALER) INH SCH ×4 (01:36→18:17)
[2021-06-22] MEDS: Acetaminophen 325 MG TAB PO PRN ×2 (03:02→20:35)
[2021-06-22] MEDS: Levothyroxine Sodium 50 MCG TAB PO SCH ×2 (05:51→22:00)
[2021-06-22] MEDS: Dexamethasone 4 MG TAB PER TUBE SCH (08:46)
[2021-06-22] MEDS: Magnesium Oxide 400 MG TAB PO SCH (08:47)
[2021-06-22] MEDS: Ascorbic Acid 500 mg Chewable Tablet PER TUBE SCH (08:48)
[2021-06-22] MEDS: Gabapentin 100 MG CAP PO SCH ×3 (08:48→20:34)
[2021-06-22] MEDS: Sodium Bicarbonate Tab 325 MG TAB PO SCH ×3 (08:48→20:34)
[2021-06-22] MEDS: Cholecalciferol 1,000 UNITS (25 MCG) TAB PER TUBE SCH (08:48)
[2021-06-22] MEDS: Zinc Sulfate 220 MG CAP PER TUBE SCH (08:48)
[2021-06-22] MEDS: Heparin 5,000 UNITS/ML VIAL SC SCH ×2 (08:49→20:34)
[2021-06-22] MEDS: Vitamin E 400 UNITS CAP PO SCH (08:49)
[2021-06-22] MEDS: Pantoprazole 40 MG GRANULES PACKET PO SCH (08:49)
[2021-06-23] MEDS: Albuterol 200 PUFF (6.7GM INHALER) INH SCH ×4 (01:10→22:09)
[2021-06-23 08:11] LABS: #Lymphocytes 1.7 thou/uL (1.20-3.40); #Monocytes 0.5 thou/uL (0.11-0.59); #Neutrophils 13.4 thou/uL (1.40-6.50); %Eosinophils 0.1 % (0.0-10.0); %Lymphocytes 10.8 % (21.0-51.0); %Monocytes 3.1 % (0.0-10.0); Mean Corpuscular HGB CONC 31.8 g/dL (32.0-36.0); Mean Corpuscular Hemoglobin 29.7 pg (27.0-31.0); Mean Corpuscular Volume 93.6 fL (78.0-98.0); Mean Platelet Volume 9.4 fL (7.4-10.4); Platelet Count 237 thou/uL (130-400); RBC Distribution Width 16.3 % (11.5-14.5); Red Blood Cell (RBC) Count 3.35 mill/uL (4.20-5.40); White Blood Cell (WBC) Count 15.5 thou/uL (4.8-10.8)
[2021-06-23 08:35] LABS: ALT (SGPT) 21 U/L (8-55); AST (SGOT) 42 U/L (5-34); Albumin 2.5 g/dL (3.4-4.8); Alkaline Phosphatase 65 U/L (40-110); Anion Gap 13 mmol/L (10-20); BUN (Urea Nitrogen) 47 mg/dL (9.8-20.1); Bilirubin, Total 0.3 mg/dL (0.2-1.2); Calc. Creatinine Clearance 16 mL/min (70-130); Calcium 7.4 mg/dL (7.8-10.44); Carbon Dioxide 26 mmol/L (23-31); Chloride 107 mmol/L (98-107); Globulin 3.1 g/dL (2.4-3.5); Glucose 116 mg/dL (83-110); Potassium 5.2 mmol/L (3.5-5.1); Protein, Total 5.6 g/dL (5.8-8.1); Sodium 141 mmol/L (136-145)
[2021-06-23] MEDS ORDERED: Furosemide 40 MG/4 ML VIAL SLOW IVP SCH (08:45)
[2021-06-23] MEDS ORDERED: Lidocaine 1% w/Epinephrine 1:100K 20 ML VIAL FS SCH (09:00)
[2021-06-23] MEDS ORDERED: Lidocaine 1% w/Epinephrine 1:100K 20 ML VIAL ONE (09:02)
[2021-06-23] MEDS ORDERED: Bupivacaine PF 0.5% 30 ML VIAL FS SCH (09:15)
[2021-06-23] MEDS: Cholecalciferol 1,000 UNITS (25 MCG) TAB PER TUBE SCH (10:17)
[2021-06-23] MEDS: Ascorbic Acid 500 mg Chewable Tablet PER TUBE SCH (10:17)
[2021-06-23] MEDS: Gabapentin 100 MG CAP PO SCH (10:17)
[2021-06-23] MEDS: Pantoprazole 40 MG GRANULES PACKET PO SCH (10:18)
[2021-06-23] MEDS: Sodium Bicarbonate Tab 325 MG TAB PO SCH ×3 (10:18→22:11)
[2021-06-23] MEDS: Magnesium Oxide 400 MG TAB PO SCH (10:18)
[2021-06-23] MEDS: Vitamin E 400 UNITS CAP PO SCH (10:18)
[2021-06-23] MEDS: Heparin 5,000 UNITS/ML VIAL SC SCH ×2 (10:18→22:05)
[2021-06-23] MEDS: Zinc Sulfate 220 MG CAP PER TUBE SCH (10:18)
[2021-06-23] MEDS: Dexamethasone 4 MG TAB PER TUBE SCH (10:30)
[2021-06-23] MEDS: Dexamethasone 10 MG/ML VIAL SLOW IVP SCH ×2 (10:37→22:10)
[2021-06-23 12:56] VITALS: BMI 23.1
[2021-06-23] MEDS ORDERED: Dextrose 50% Abboject 50 ML SYRINGE SLOW IVP PRN (13:39)
[2021-06-23] MEDS ORDERED: Dextrose 5% in Water 1,000 ML IV PRN (13:39)
[2021-06-23] MEDS ORDERED: Sodium Chloride 0.9% (PF) 10 ML VIAL FS PRN (14:30)
[2021-06-23] MEDS: Sodium Chloride 0.45% 1,000 ML IV SCH (15:23)
[2021-06-23] MEDS ORDERED: Metoprolol Tartrate 5 MG/5 ML VIAL IVP PRN (17:27)
[2021-06-23] MEDS: CALCIUM CHLORIDE IV SCH (23:07)
[2021-06-23] MEDS: SODIUM ACETATE IV SCH (23:07)
[2021-06-23] MEDS: SODIUM CHLORIDE IV SCH (23:07)
[2021-06-23] MEDS: [UNRECOGNIZED DRUG - OTHER] IV SCH (23:07)
[2021-06-24] MEDS: Albuterol 200 PUFF (6.7GM INHALER) INH SCH ×3 (01:46→22:00)
[2021-06-24] MEDS: Levothyroxine 100 MCG SDV IVP SCH (05:59)
[2021-06-24] MEDS: Cholecalciferol 1,000 UNITS (25 MCG) TAB PER TUBE SCH (08:02)
[2021-06-24] MEDS: Dexamethasone 10 MG/ML VIAL SLOW IVP SCH ×2 (08:03→21:38)
[2021-06-24] MEDS: Pantoprazole 40 MG VIAL IVP SCH (08:03)
[2021-06-24] MEDS: Heparin 5,000 UNITS/ML VIAL SC SCH ×2 (08:03→21:38)
[2021-06-24] MEDS: Vitamin E 400 UNITS CAP PO SCH (08:04)
[2021-06-24] MEDS: Sodium Bicarbonate Tab 325 MG TAB PO SCH ×2 (08:04→14:10)
[2021-06-24 08:29] LABS: #Lymphocytes 0.6 thou/uL (1.20-3.40); #Monocytes 0.3 thou/uL (0.11-0.59); #Neutrophils 9.4 thou/uL (1.40-6.50); %Eosinophils 0.3 % (0.0-10.0); %Monocytes 2.8 % (0.0-10.0); Hemoglobin 8.5 g/dL (12.0-16.0); Mean Corpuscular HGB CONC 30.2 g/dL (32.0-36.0); Mean Corpuscular Hemoglobin 27.7 pg (27.0-31.0); Mean Corpuscular Volume 91.8 fL (78.0-98.0); Mean Platelet Volume 8.8 fL (7.4-10.4); Platelet Count 228 thou/uL (130-400); RBC Distribution Width 15.9 % (11.5-14.5); Red Blood Cell (RBC) Count 3.05 mill/uL (4.20-5.40); White Blood Cell (WBC) Count 10.3 thou/uL (4.8-10.8)
[2021-06-24 08:56] LABS: ALT (SGPT) 24 U/L (8-55); AST (SGOT) 40 U/L (5-34); Albumin 2.2 g/dL (3.4-4.8); Alkaline Phosphatase 57 U/L (40-110); Anion Gap 13 mmol/L (10-20); BUN (Urea Nitrogen) 64 mg/dL (9.8-20.1); Bilirubin, Total 0.2 mg/dL (0.2-1.2); Calc. Creatinine Clearance 15 mL/min (70-130); Calcium 7.3 mg/dL (7.8-10.44); Carbon Dioxide 26 mmol/L (23-31); Chloride 106 mmol/L (98-107); Globulin 2.9 g/dL (2.4-3.5); Glucose 144 mg/dL (83-110); Potassium 4.9 mmol/L (3.5-5.1); Protein, Total 5.1 g/dL (5.8-8.1); Sodium 140 mmol/L (136-145)
[2021-06-24] MEDS: Ondansetron PF 4 MG/2 ML Vial IVP PRN (10:26)
[2021-06-24] MEDS: Morphine 2 MG/ML VIAL SLOW IVP PRN (10:26)
[2021-06-24] MEDS: Sodium Chloride 0.45% 1,000 ML IV SCH (13:00)
[2021-06-24] MEDS: SODIUM CHLORIDE IV SCH (21:34)
[2021-06-24] MEDS: SODIUM ACETATE IV SCH (21:34)
[2021-06-24] MEDS: CALCIUM CHLORIDE IV SCH (21:34)
[2021-06-24] MEDS: [UNRECOGNIZED DRUG - OTHER] IV SCH (21:34)
[2021-06-25] MEDS: Sodium Bicarbonate Tab 325 MG TAB PO SCH ×4 (00:17→22:36)
[2021-06-25] MEDS: HumaLOG 300 UNITS/3 ML VIAL SC PRN ×2 (00:35→06:34)
[2021-06-25] MEDS: Albuterol 200 PUFF (6.7GM INHALER) INH SCH ×5 (01:35→20:02)
[2021-06-25 05:49] LABS: #Lymphocytes 0.7 thou/uL (1.20-3.40); #Monocytes 0.3 thou/uL (0.11-0.59); #Neutrophils 14.1 thou/uL (1.40-6.50); %Eosinophils 0.2 % (0.0-10.0); %Lymphocytes 4.9 % (21.0-51.0); %Monocytes 2.2 % (0.0-10.0); %Neutrophils 92.7 % (42.0-75.0); Hemoglobin 9.5 g/dL (12.0-16.0); Mean Corpuscular Hemoglobin 29.7 pg (27.0-31.0); Mean Corpuscular Volume 92.9 fL (78.0-98.0); Platelet Count 266 thou/uL (130-400); RBC Distribution Width 15.8 % (11.5-14.5); Red Blood Cell (RBC) Count 3.19 mill/uL (4.20-5.40); White Blood Cell (WBC) Count 15.3 thou/uL (4.8-10.8)
[2021-06-25 06:09] LABS: Anion Gap 13 mmol/L (10-20); BUN (Urea Nitrogen) 77 mg/dL (9.8-20.1); Calc. Creatinine Clearance 15 mL/min (70-130); Calcium 7.8 mg/dL (7.8-10.44); Carbon Dioxide 25 mmol/L (23-31); Chloride 105 mmol/L (98-107); Glucose 182 mg/dL (83-110); Potassium 4.7 mmol/L (3.5-5.1); Sodium 138 mmol/L (136-145)
[2021-06-25] MEDS: Levothyroxine 100 MCG SDV IVP SCH (06:28)
[2021-06-25 09:13] LABS: Actual Bicarbonate (HCO3a) 22.5 mEq/L (22-28); Base Excess (BEa) -1.7 mEq/L (-2.0 to +3.0); CO2 Tension 35.9 mmHg (35.0-45.0); Calcium, Ionized (arterial) 1.14 mmol/L (1.12-1.30); Carboxyhemoglobin (COHb) 0.3 gm% (0.0-3.0); Hemoglobin (Hb) 9.8 g/dL (12.0-16.0); O2 Tension (PaO2), arterial 63.3 mmHg (> 60.0); Potassium - ABG Lab 4.25 mmol/L (3.70-5.30); pH, Arterial 7.42 (7.35-7.45)
[2021-06-25 09:14] LABS: Puncture Site RBA
[2021-06-25 09:15] LABS: ALV-art Gradient 514.865 mmHg (0-20)
[2021-06-25] MEDS: Cholecalciferol 1,000 UNITS (25 MCG) TAB PER TUBE SCH (10:42)
[2021-06-25] MEDS: Vitamin E 400 UNITS CAP PO SCH (10:43)
[2021-06-25] MEDS: Heparin 5,000 UNITS/ML VIAL SC SCH ×2 (10:46→22:35)
[2021-06-25] MEDS: Dexamethasone 10 MG/ML VIAL SLOW IVP SCH ×2 (10:49→22:36)
[2021-06-25] MEDS: Pantoprazole 40 MG VIAL IVP SCH (10:55)
[2021-06-25] MEDS: Sodium Chloride 0.45% 1,000 ML IV SCH (15:34)
[2021-06-25] MEDS: SODIUM ACETATE IV SCH (22:15)
[2021-06-25] MEDS: CALCIUM CHLORIDE IV SCH (22:15)
[2021-06-25] MEDS: [UNRECOGNIZED DRUG - OTHER] IV SCH (22:15)
[2021-06-25] MEDS: SODIUM CHLORIDE IV SCH (22:15)
[2021-06-26] MEDS: Albuterol 200 PUFF (6.7GM INHALER) INH SCH ×4 (01:40→19:03)
[2021-06-26] MEDS: hydrALAZINE 20 MG/ML VIAL SLOW IVP PRN (04:34)
[2021-06-26 05:32] LABS: #Lymphocytes 0.7 thou/uL (1.20-3.40); #Monocytes 0.2 thou/uL (0.11-0.59); #Neutrophils 12.4 thou/uL (1.40-6.50); %Basophils 0.1 % (0.0-1.0); %Eosinophils 0.2 % (0.0-10.0); %Lymphocytes 5.1 % (21.0-51.0); %Monocytes 1.5 % (0.0-10.0); %Neutrophils 93.1 % (42.0-75.0); Hemoglobin 9.5 g/dL (12.0-16.0); Mean Corpuscular HGB CONC 32.6 g/dL (32.0-36.0); Mean Corpuscular Hemoglobin 29.7 pg (27.0-31.0); Mean Corpuscular Volume 91.1 fL (78.0-98.0); Mean Platelet Volume 8.9 fL (7.4-10.4); Platelet Count 279 thou/uL (130-400); RBC Distribution Width 15.8 % (11.5-14.5); Red Blood Cell (RBC) Count 3.19 mill/uL (4.20-5.40); White Blood Cell (WBC) Count 13.4 thou/uL (4.8-10.8)
[2021-06-26] MEDS: Levothyroxine 100 MCG SDV IVP SCH (05:52)
[2021-06-26 05:54] LABS: ALT (SGPT) 71 U/L (8-55); AST (SGOT) 93 U/L (5-34); Albumin 2.3 g/dL (3.4-4.8); Alkaline Phosphatase 97 U/L (40-110); Anion Gap 11 mmol/L (10-20); BUN (Urea Nitrogen) 81 mg/dL (9.8-20.1); Bilirubin, Total 0.4 mg/dL (0.2-1.2); CRP (Inflammatory) 2.82 mg/dL (= or < 0.5); Calc. Creatinine Clearance 17 mL/min (70-130); Carbon Dioxide 24 mmol/L (23-31); Chloride 104 mmol/L (98-107); Globulin 3.1 g/dL (2.4-3.5); Glucose 174 mg/dL (83-110); Potassium 4.4 mmol/L (3.5-5.1); Protein, Total 5.4 g/dL (5.8-8.1); Sodium 135 mmol/L (136-145)
[2021-06-26] MEDS: Heparin 5,000 UNITS/ML VIAL SC SCH ×2 (08:24→22:08)
[2021-06-26] MEDS: Dexamethasone 10 MG/ML VIAL SLOW IVP SCH ×2 (08:24→22:08)
[2021-06-26] MEDS: Pantoprazole 40 MG VIAL IVP SCH (08:25)
[2021-06-26] MEDS: Sodium Bicarbonate Tab 325 MG TAB PO SCH ×3 (09:00→20:38)
[2021-06-26] MEDS: Cholecalciferol 1,000 UNITS (25 MCG) TAB PER TUBE SCH (09:00)
[2021-06-26] MEDS: Vitamin E 400 UNITS CAP PO SCH (09:00)
[2021-06-26] MEDS: Morphine 2 MG/ML VIAL SLOW IVP PRN (17:22)
[2021-06-26] MEDS ORDERED: Lidocaine 5% Patch TD SCH (17:30)
[2021-06-26] MEDS: Lidocaine 5% Patch TD SCH (18:11)
[2021-06-26] MEDS ORDERED: SODIUM CHLORIDE IV SCH (22:00)
[2021-06-26] MEDS ORDERED: SODIUM ACETATE IV SCH (22:00)
[2021-06-26] MEDS ORDERED: POTASSIUM CHLORIDE IV SCH (22:00)
[2021-06-26] MEDS ORDERED: [UNRECOGNIZED DRUG - OTHER] IV SCH (22:00)
[2021-06-26] MEDS: Sodium Chloride 0.45% 1,000 ML IV SCH (22:09)
[2021-06-27] MEDS: hydrALAZINE 20 MG/ML VIAL SLOW IVP PRN ×2 (00:11→17:37)
[2021-06-27] MEDS: HumaLOG 300 UNITS/3 ML VIAL SC PRN ×4 (00:12→16:39)
[2021-06-27] MEDS: Morphine 2 MG/ML VIAL SLOW IVP PRN (00:44)
[2021-06-27] MEDS: Albuterol 200 PUFF (6.7GM INHALER) INH SCH ×4 (01:02→18:35)
[2021-06-27] MEDS: Levothyroxine 100 MCG SDV IVP SCH (05:15)
[2021-06-27] MEDS ORDERED: Transdermal Patch Removal TOP SCH (05:30)
[2021-06-27 06:17] LABS: Band 3 % (5-11); Lymphocytes 4 % (21-51); MDiff Complete? YES; Mean Corpuscular HGB CONC 31.7 g/dL (32.0-36.0); Mean Corpuscular Hemoglobin 28.8 pg (27.0-31.0); Mean Corpuscular Volume 90.8 fL (78.0-98.0); Mean Platelet Volume 9.1 fL (7.4-10.4); Monocytes 3 % (0-10); Neutrophil 90 % (42-75); Platelet Count 307 thou/uL (130-400); Platelet Morphology Comment Appears Adequate; RBC Distribution Width 15.8 % (11.5-14.5); Red Blood Cell (RBC) Count 3.46 mill/uL (4.20-5.40); White Blood Cell (WBC) Count 12.9 thou/uL (4.8-10.8)
[2021-06-27 06:28] LABS: Anion Gap 11 mmol/L (10-20); BUN (Urea Nitrogen) 92 mg/dL (9.8-20.1); Calc. Creatinine Clearance 17 mL/min (70-130); Calcium 8.1 mg/dL (7.8-10.44); Carbon Dioxide 23 mmol/L (23-31); Chloride 103 mmol/L (98-107); Glucose 217 mg/dL (83-110); Magnesium 2.4 mg/dL (1.6-2.6); Potassium 4.2 mmol/L (3.5-5.1); Sodium 133 mmol/L (136-145)
[2021-06-27 06:31] LABS: Phosphorus 1.8 mg/dL (2.3-4.7)
[2021-06-27] MEDS: Heparin 5,000 UNITS/ML VIAL SC SCH ×2 (08:57→22:16)
[2021-06-27] MEDS: Dexamethasone 10 MG/ML VIAL SLOW IVP SCH (08:57)
[2021-06-27] MEDS: Pantoprazole 40 MG VIAL IVP SCH (08:59)
[2021-06-27] MEDS: Cholecalciferol 1,000 UNITS (25 MCG) TAB PER TUBE SCH (11:12)
[2021-06-27] MEDS: Sodium Bicarbonate Tab 325 MG TAB PO SCH ×3 (11:13→22:19)
[2021-06-27] MEDS: Vitamin E 400 UNITS CAP PO SCH (11:14)
[2021-06-27] MEDS: Lidocaine 5% Patch TD SCH (16:39)
[2021-06-27] MEDS ORDERED: SODIUM CHLORIDE IV SCH ×2 (22:00)
[2021-06-27] MEDS ORDERED: SODIUM ACETATE IV SCH ×2 (22:00)
[2021-06-27] MEDS ORDERED: POTASSIUM CHLORIDE IV SCH ×2 (22:00)
[2021-06-27] MEDS ORDERED: [UNRECOGNIZED DRUG - OTHER] IV SCH ×2 (22:00)
[2021-06-28] MEDS: Albuterol 200 PUFF (6.7GM INHALER) INH SCH ×3 (01:40→13:28)
[2021-06-28] MEDS ORDERED: Morphine 2 MG/ML VIAL SLOW IVP PRN (03:48)
[2021-06-28] MEDS: Levothyroxine 100 MCG SDV IVP SCH (05:50)
[2021-06-28] MEDS: HumaLOG 300 UNITS/3 ML VIAL SC PRN ×2 (05:50→12:18)
[2021-06-28 06:21] LABS: Anion Gap 13 mmol/L (10-20); BUN (Urea Nitrogen) 94 mg/dL (9.8-20.1); Calc. Creatinine Clearance 19 mL/min (70-130); Calcium 8.1 mg/dL (7.8-10.44); Carbon Dioxide 23 mmol/L (23-31); Chloride 104 mmol/L (98-107); Glucose 184 mg/dL (83-110); Sodium 136 mmol/L (136-145)
[2021-06-28] MEDS ORDERED: Dexamethasone 10 MG/ML VIAL SLOW IVP SCH (09:00)
[2021-06-28 09:14] LABS: Hemoglobin 9.7 g/dL (12.0-16.0); Mean Corpuscular HGB CONC 32.3 g/dL (32.0-36.0); Mean Corpuscular Hemoglobin 29.1 pg (27.0-31.0); Mean Corpuscular Volume 90.1 fL (78.0-98.0); Mean Platelet Volume 9.3 fL (7.4-10.4); Platelet Count 254 thou/uL (130-400); RBC Distribution Width 16.2 % (11.5-14.5); Red Blood Cell (RBC) Count 3.34 mill/uL (4.20-5.40); White Blood Cell (WBC) Count 13.3 thou/uL (4.8-10.8)
[2021-06-28] MEDS: Heparin 5,000 UNITS/ML VIAL SC SCH (09:45)
[2021-06-28] MEDS: Sodium Chloride 0.45% 1,000 ML IV SCH ×3 (09:46→15:14)
[2021-06-28] MEDS: Pantoprazole 40 MG VIAL IVP SCH (09:46)
[2021-06-28 10:41] LABS: Phosphorus 2.5 mg/dL (2.3-4.7)
[2021-06-28] MEDS: Vitamin E 400 UNITS CAP PO SCH (10:46)
[2021-06-28] MEDS: Cholecalciferol 1,000 UNITS (25 MCG) TAB PER TUBE SCH (10:46)
[2021-06-28] MEDS: Sodium Bicarbonate Tab 325 MG TAB PO SCH ×2 (10:46→15:14)
[2021-06-28 11:19] LABS: Band 3 % (5-11); Lymphocytes 4 % (21-51); MDiff Complete? YES; Monocytes 2 % (0-10); Myelocyte 4 % (0-0); Neutrophil 87 % (42-75); Platelet Morphology Comment Appears Adequate; Polychromasia SLIGHT = 2-3 cells (100X) (0-2/hpf)
[2021-06-28] MEDS ORDERED: Morphine 4 MG/ML VIAL SLOW IVP PRN (14:15)
[2021-06-28] MEDS: Morphine 4 MG/ML VIAL SLOW IVP PRN ×2 (15:06→17:09)
[2021-06-28] MEDS: Lorazepam 2 MG/ML VIAL SLOW IVP PRN ×2 (15:54→17:09)
[2021-06-28 16:53] VITALS: BP 161/75; TEMP 97.5
[2021-06-28] MEDS ORDERED: SODIUM ACETATE IV SCH (22:00)
[2021-06-28] MEDS ORDERED: SODIUM CHLORIDE IV SCH (22:00)
[2021-06-28] MEDS ORDERED: POTASSIUM CHLORIDE IV SCH (22:00)
[2021-06-28] MEDS ORDERED: [UNRECOGNIZED DRUG - OTHER] IV SCH (22:00)
== END 2021-06-28 17:15 | disposition hospice, inpatient (51) | DRG 329 ==
LOC: ERS 22:31 → T4-A 06-11 02:34 → IMCU/EMU 06-16 19:09 → T4-B 06-18 12:07 → 2SW 06-23 20:30
PROVIDERS: ADMIT Student in an Organized Health Care Education/Training Program; ATTEND Internal Medicine
PROC: 8E0ZXY6 Isolation (ICD-10-PCS; 2021-06-11)
PROC: 3E0333Z Introduction of Anti-inflammatory into Peripheral Vein, Percutaneous Approach (ICD-10-PCS; 2021-06-11)
PROC: 30233N1 Transfusion of Nonautologous Red Blood Cells into Peripheral Vein, Percutaneous Approach (ICD-10-PCS; 2021-06-12)
PROC: 0DJ08ZZ Inspection of Upper Intestinal Tract, Via Natural or Artificial Opening Endoscopic (ICD-10-PCS; 2021-06-13)
PROC: 0D9E8ZZ Drainage of Large Intestine, Via Natural or Artificial Opening Endoscopic (ICD-10-PCS; 2021-06-14)
PROC: 0DBN8ZX Excision of Sigmoid Colon, Via Natural or Artificial Opening Endoscopic, Diagnostic (ICD-10-PCS; 2021-06-14)
PROC: 0DBN0ZZ Excision of Sigmoid Colon, Open Approach (ICD-10-PCS; principal; 2021-06-16)
PROC: 02HV33Z Insertion of Infusion Device into Superior Vena Cava, Percutaneous Approach (ICD-10-PCS; 2021-06-16)
PROC: 0DJD8ZZ Inspection of Lower Intestinal Tract, Via Natural or Artificial Opening Endoscopic (ICD-10-PCS; 2021-06-16)
PROC: 0DH67UZ Insertion of Feeding Device into Stomach, Via Natural or Artificial Opening (ICD-10-PCS; 2021-06-18)
PROC: 3E0G76Z Introduction of Nutritional Substance into Upper GI, Via Natural or Artificial Opening (ICD-10-PCS; 2021-06-18)
PROC: 5A0955A Assistance with Respiratory Ventilation, Greater than 96 Consecutive Hours, High Flow/Velocity Cannula (ICD-10-PCS; 2021-06-23)
PROC: 0W9900Z Drainage of Right Pleural Cavity with Drainage Device, Open Approach (ICD-10-PCS; 2021-06-23)
PROC: 3E0336Z Introduction of Nutritional Substance into Peripheral Vein, Percutaneous Approach (ICD-10-PCS; 2021-06-24)
PROC: 5A09357 Assistance with Respiratory Ventilation, Less than 24 Consecutive Hours, Continuous Positive Airway Pressure (ICD-10-PCS; 2021-06-25)
DX: C18.7 Malignant neoplasm of sigmoid colon (principal); U07.1 COVID-19; J12.82 Pneumonia due to coronavirus disease 2019; J96.01 Acute respiratory failure with hypoxia; G93.41 Metabolic encephalopathy; J93.83 Other pneumothorax; N18.4 Chronic kidney disease, stage 4 (severe); N10 Acute pyelonephritis; D62 Acute posthemorrhagic anemia; K92.1 Melena; N30.00 Acute cystitis without hematuria; N17.9 Acute kidney failure, unspecified; E46 Unspecified protein-calorie malnutrition; Z66 Do not resuscitate; Z51.5 Encounter for palliative care; G89.29 Other chronic pain; E03.9 Hypothyroidism, unspecified; Z79.890 Hormone replacement therapy; I12.9 Hypertensive chronic kidney disease with stage 1 through stage 4 chronic kidney disease, or unspecified chronic kidney disease; M54.50 Low back pain, unspecified; B96.20 Unspecified Escherichia coli [E. coli] as the cause of diseases classified elsewhere; G47.00 Insomnia, unspecified; F32.A Depression, unspecified; E21.3 Hyperparathyroidism, unspecified; M19.90 Unspecified osteoarthritis, unspecified site; H35.30 Unspecified macular degeneration; Z96.651 Presence of right artificial knee joint; Z96.641 Presence of right artificial hip joint; E86.0 Dehydration; H54.7 Unspecified visual loss; K29.70 Gastritis, unspecified, without bleeding; F41.9 Anxiety disorder, unspecified; I48.91 Unspecified atrial fibrillation; R45.1 Restlessness and agitation; E87.6 Hypokalemia; E16.2 Hypoglycemia, unspecified; R13.10 Dysphagia, unspecified; Z68.23 Body mass index [BMI] 23.0-23.9, adult; Z98.51 Tubal ligation status; Z98.84 Bariatric surgery status; Z79.899 Other long term (current) drug therapy
CPT/HCPCS: 0240U; 36415; 36416; 36430; 36600; 51701; 70450; 70551; 71045; 74018; 74176; 80048; 80053; 80076; 81003; 81015; 82274; 82378; 82728; 82805; 83605; 83735; 83880; 84100; 84145; 84484; 85025; 85027; 85379; 86140; 86850; 86900; 86901; 87040; 87077; 87086; 87186; 87324; 87449; 88305; 88309; 88361; 88374; 93005; 93010; 96365; 96375; A4217; C9113; J0360; J0692; J0696; J1100; J1644; J1650; J1815; J1940; J2001; J2060; J2270; J2405; J2550; J2704; J3010; J3370; J3475; J3480; J3490; J7042; J7050; J8540; P9016; P9047; Q9967; S0020; U0002

== ENCOUNTER 2021-06-28 17:23 | Inpatient (IN) | payer MEDICARE, OTHER ==
[2021-06-28] MEDS ORDERED: Ondansetron PF 4 MG/2 ML Vial IVP PRN (18:00)
[2021-06-28] MEDS ORDERED: Scopolamine 1.5 mg/72 hour Patch TOP PRN (18:00)
[2021-06-28] MEDS ORDERED: Lorazepam 2 MG/ML VIAL SLOW IVP PRN (18:00)
[2021-06-28] MEDS ORDERED: Acetaminophen 650 MG Suppository PR PRN (18:00)
[2021-06-28 18:20] VITALS: BMI 22.5
[2021-06-28] MEDS: Furosemide 20 MG/2 ML VIAL SLOW IVP SCH (18:46)
[2021-06-28] MEDS: Morphine 4 MG/ML VIAL SLOW IVP SCH (20:49)
[2021-06-28] MEDS: Lorazepam 2 MG/ML VIAL SLOW IVP SCH (20:49)
[2021-06-29] MEDS: Morphine 4 MG/ML VIAL SLOW IVP SCH ×7 (01:06→22:17)
[2021-06-29] MEDS: Lorazepam 2 MG/ML VIAL SLOW IVP SCH ×6 (01:06→20:55)
[2021-06-29] MEDS: Furosemide 20 MG/2 ML VIAL SLOW IVP SCH (17:03)
[2021-06-29] MEDS ORDERED: Morphine 20 MG/ML Oral Solution (ROXANOL) SL PRN (18:21)
[2021-06-30] MEDS: Morphine 4 MG/ML VIAL SLOW IVP SCH ×5 (00:38→08:08)
[2021-06-30] MEDS: Lorazepam 2 MG/ML VIAL SLOW IVP SCH ×3 (00:39→08:08)
[2021-06-30 08:08] VITALS: BP 83/50; TEMP 96.6
== END 2021-06-30 11:16 | disposition expired | DRG 951 ==
LOC: 2SW 17:23
PROVIDERS: ADMIT Family Medicine; ATTEND Family Medicine
DX: Z51.5 Encounter for palliative care (principal); U07.1 COVID-19; J12.82 Pneumonia due to coronavirus disease 2019; N18.4 Chronic kidney disease, stage 4 (severe); N10 Acute pyelonephritis; I48.91 Unspecified atrial fibrillation; G89.29 Other chronic pain; E03.9 Hypothyroidism, unspecified; M54.50 Low back pain, unspecified; D63.1 Anemia in chronic kidney disease; I12.9 Hypertensive chronic kidney disease with stage 1 through stage 4 chronic kidney disease, or unspecified chronic kidney disease; Z90.49 Acquired absence of other specified parts of digestive tract
CPT/HCPCS: 36416; J1940; J2060; J2270